=== PATIENT | female | born 1940 | race Two or more races ===

== ENCOUNTER 2018-08-14 18:16 | Emergency (ER) | payer SELFPAY ==
[~2018-08-14] VITALS: Ht 165.1 cm; Wt 64.9 kg
--- NOTE | 2018-08-14 18:20 | NUR ---
[facility] C/O SORE THROAT. NOTED TO BE HYPERTENSIVE. PER FAMILY, AUDITORY HALLUCINATION, GRAND DAUGHTER STATES "MY GRANDMOTHER HEARS VOICES SAYING THAT SOMEBODY WOULD LIKE TO HURT HER". AOx3, NOT IN DISTRESS. BLOOD PRESSURE UPON ARRIVAL 201/128. TO ER BED 9, HOOKED TO MONITOR, CHANGED TO GOWN, PROVIDED W WARM BLANKET, NOPTED W IVP AT RFA 18G, PATENT. DR IZQUIERDO AT BEDSIDE
--- NOTE | 2018-08-14 18:24 | NUR ---
Note undone in EDM - 08/14/18 at 1918 by CINTHYA BIBRA [facility] C/O SORE THROAT. NOTED TO BE HYPERTENSIVE. PER FAMILY, AUDITORY HALLUCINATION, GRAND DAUGHTER STATES "MY GRANDMOTHER HEARS VOICES SAYING THAT SOMEBODY WOULD LIKE TO HURT HER". AOx3, NOT IN DISTRESS. BLOOD PRESSURE UPON ARRIVAL 201/128. TO ER BED 9, HOOKED TO MONITOR, CHANGED TO GOWN, PROVIDED W WARM BLANKET, NOPTED W IVP AT RFA 18G, PATENT. AWAITING MD ARROYO
[2018-08-14 18:34] LABS: BASOPHILS % (AUTO) 0.5 % (0.0-2.0); EOSINOPHILS % (AUTO) 0.4 % (0.0-6.0); HEMATOCRIT 45 % (33-45); HEMOGLOBIN 14.9 g/dL (11.5-14.8); LYMPHOCYTES # (AUTO) 2.3 /CMM (0.8-4.8); LYMPHOCYTES % (AUTO) 27.7 % (20.0-44.0); MEAN CORPUSCULAR HGB CONC 33 g/dl (31.0-36.0); MEAN CORPUSCULAR VOLUME 91 fL (82-100); MONOCYTES # (AUTO) 0.4 /CMM (0.1-1.30); MONOCYTES % (AUTO) 4.7 % (2.0-12.0); NEUTROPHILS # (AUTO) 5.6 /CMM (1.8-8.9); NEUTROPHILS % (AUTO) 66.7 % (43.0-81.0); PLATELET COUNT (AUTO) 279 /CMM (150-450); RED BLOOD CELL COUNT(AUTO) 4.94 MIL/uL (4.0-5.2); WHITE BLOOD COUNT (AUTO) 8.4 K/uL (4.3-11.0)
--- NOTE | 2018-08-14 18:43 | NUR ---
AERIAL PHOTOGRAMMETRIST AT BEDSIDE
[2018-08-14 18:49] LABS: ALANINE AMINOTRANSFERASE 17 U/L (12-78); ALBUMIN 3.9 g/dL (3.4-5.0); ALCOHOL, BLOOD < 3 mg/dL (0-0); ALKALINE PHOSPHATASE 163 U/L (46-116); ASPARTATE AMINOTRANSFERASE 21 U/L (15-37); BILIRUBIN,DIRECT 0.1 mg/dL (0.0-0.2); BILIRUBIN,TOTAL 0.3 mg/dL (0.2-1.0); CALCIUM, SERUM 9.7 mg/dL (8.5-10.1); CARBON DIOXIDE 25 mmol/L (21-32); CHLORIDE 99 mmol/L (98-107); GLUCOSE 114 mg/dL (74-106); SODIUM SERUM 137 mmol/L (136-145); TOTAL PROTEIN, SERUM 8.4 g/dL (6.4-8.2); UREA NITROGEN, BLOOD 21 mg/dL (7-18)
[2018-08-14 18:59] LABS: ACETAMINOPHEN < 2 ug/ml (10-30); SALICYLATE 1.1 mg/dL (2.8-20.0)
--- NOTE | 2018-08-14 19:18 | NUR ---
REPORT GIVEN TO AFSHAN RONDON FOR MILLA
[2018-08-14 19:43] LABS: APPEARANCE,URINE CLEAR (CLEAR); BILIRUBIN,URINE NEGATIVE (NEGATIVE); BLOOD, URINE 1+ Ery/uL (NEGATIVE); COLOR,URINE YELLOW (YELLOW); KETONES,URINE NEGATIVE (NEGATIVE); LEUKOCYTE ESTERASE ,URINE 1+ (NEGATIVE); NITRITE, URINE NEGATIVE (NEGATIVE); PROTEIN,URINE NEGATIVE (NEGATIVE); UGLUCOSE NEGATIVE (NEGATIVE); UROBILINOGEN,URINE 0.2 EU/dL (0.2)
[2018-08-14 19:56] LABS: BACTERIA,URINE 1+ /HPF (None Seen); SQUAMOUS EPITHELIAL CELL,UR 0-2 /HPF (None Seen)
--- NOTE | 2018-08-14 20:00 | NUR ---
Patient discharged to home in stable condition. Written and verbal after care instructions given. Patient verbalizes understanding of instruction. IV removed. Catheter intact and site benign. Pressure and 4x4 applied to site. No bleeding noted.
[2018-08-14 20:48] VITALS: BP 165/100
== END 2018-08-14 20:49 | disposition home or self-care (01) ==
LOC: ER 18:18
DX: R55 Syncope and collapse (principal); I10 Essential (primary) hypertension; F43.20 Adjustment disorder, unspecified; R53.1 Weakness; R53.83 Other fatigue; F41.9 Anxiety disorder, unspecified; R44.0 Auditory hallucinations; E86.0 Dehydration
CPT/HCPCS: 36415; 71045-TC; 80048-TC; 80076-TC; 80305; 81000-TC; 84484-TC; 85025-TC; 87086-TC; G0480